=== PATIENT | male | born 1970 | race Caucasian/White ===

== ENCOUNTER 2016-10-06 06:34 | Inpatient (IN) | payer OTHER ==
[2016-10-05 13:52] VITALS: BP 134/96
[2016-10-05 14:17] LABS: ASPARTATE AMINO TRANSFERASE 33 U/L (15-37); BLOOD UREA NITROGEN 13 mg/dL (7-18)
[~2016-10-06] VITALS: Ht 180.3 cm; Wt 80.9 kg
[~2016-10-06 06:34] MED LIST: AMIO200T42 PO; FLEC100T PO; RIVA20TA PO
[2016-10-06] MEDS ORDERED: SODIUM CHLORIDE 0.9% 1,000 ML IV SCH (06:46)
[2016-10-06] MEDS ORDERED: LIDOCAINE 2%, 20ML ONE (07:40)
[2016-10-06] MEDS ORDERED: ADENOSINE 6 MG/2 ML ONE (07:40)
[2016-10-06] MEDS ORDERED: ISOPROTERENOL 0.2MG/ML, 5ML ONE (07:40)
[2016-10-06] MEDS ORDERED: PROTAMINE SULFATE 10 MG/ML, 5ML ONE (07:41)
[2016-10-06] MEDS ORDERED: FENTANYL PF 250 MCG/5ML ONE (07:53)
[2016-10-06] MEDS ORDERED: MIDAZOLAM 1 MG/ML, 5ML ONE (07:53)
[2016-10-06] MEDS ORDERED: PROPOFOL 10 MG/ML, 20ML ONE (07:55)
[2016-10-06] MEDS ORDERED: ROCURONIUM 10 MG/ML ONE (07:55)
[2016-10-06] MEDS ORDERED: ONDANSETRON 2MG/ML, 2ML ONE (07:55)
[2016-10-06] MEDS ORDERED: DEXAMETHASONE 4 MG/ML, 5ML ONE (07:55)
[2016-10-06] MEDS ORDERED: SUCCINYLCHOLINE 20 MG/ML, 10ML ONE (07:55)
[2016-10-06] MEDS ORDERED: HEPARIN 1,000 UNITS/ML, 10ML ONE (08:43)
[2016-10-06] MEDS ORDERED: ZOLPIDEM 5MG TABLET PO PRN (10:00)
[2016-10-06] MEDS ORDERED: OXYcodone 5 MG/5 ML ORAL.SOL UDC PO PRN (10:30)
[2016-10-06] MEDS ORDERED: ONDANSETRON 2MG/ML, 2ML IVPush PRN (10:30)
[2016-10-06] MEDS ORDERED: FENTANYL PF 100 MCG/2ML IV PRN (10:30)
[2016-10-06] MEDS ORDERED: MEPERIDINE/PF 25MG/0.5ML IVPush PRN (10:30)
[2016-10-06] MEDS ORDERED: ALBUTEROL SULFATE 2.5 MG/3 ML NPPB PRN (10:30)
[2016-10-06] MEDS ORDERED: HYDROmorphone 1 MG/ML, 1ML IV PRN (10:30)
[2016-10-06] MEDS ORDERED: hydrALAzine 20 MG/ML, 1ML IV PRN (10:30)
[2016-10-06] MEDS ORDERED: ACETAMINOPHEN 325 MG TABLET PO PRN (10:30)
[2016-10-06] MEDS ORDERED: PROMETHAZINE 25 MG/ML, 1ML IV PRN (10:30)
[2016-10-06] MEDS ORDERED: LABETALOL 5MG/ML, 20ML IV PRN (10:30)
[2016-10-06] MEDS ORDERED: MIDAZOLAM 1 MG/ML, 2ML IV PRN (10:30)
[2016-10-06 13:05] VITALS: BP 133/63
[2016-10-06 20:36] VITALS: BP 136/80
[2016-10-06] MEDS: AMIODARONE 200 MG TABLET PO SCH (20:46)
[2016-10-06] MEDS ORDERED: RIVAROXABAN 20 MG TABLET PO SCH (21:00)
[2016-10-06] MEDS ORDERED: AMIODARONE 200 MG TABLET PO SCH (21:00)
[2016-10-07 01:30] VITALS: BP 134/73
[2016-10-07 05:52] VITALS: BP 156/92
[2016-10-07 07:14] VITALS: BP 133/88
[2016-10-07] MEDS: AMIODARONE 200 MG TABLET PO SCH (08:02)
[2016-10-07] MEDS ORDERED: AMIO200T42 PO (08:12)
[2016-10-07] MEDS ORDERED: AMIODARONE 200 MG TABLET PO SCH (09:00)
== END 2016-10-07 10:00 | disposition home or self-care (01) | DRG 274 ==
LOC: CACL 06:34 → EDSTATUS 08:00 → INTOOBSV 09:59 → ORIP 09:59 → OBSVTOIN 09:59 → 5SO 12:39 → UNDODISOB 10-07 10:00
PROVIDERS: ADMIT Internal Medicine Cardiovascular Disease; ATTEND Internal Medicine Cardiovascular Disease
PROC: 02K83ZZ Map Conduction Mechanism, Percutaneous Approach (ICD-10-PCS; 2016-10-06)
PROC: 4A023FZ Measurement of Cardiac Rhythm, Percutaneous Approach (ICD-10-PCS; 2016-10-06)
PROC: 4A0234Z Measurement of Cardiac Electrical Activity, Percutaneous Approach (ICD-10-PCS; 2016-10-06)
PROC: 02583ZZ Destruction of Conduction Mechanism, Percutaneous Approach (ICD-10-PCS; principal; 2016-10-06 08:00)
DX: I48.0 Paroxysmal atrial fibrillation (principal); I48.92 Unspecified atrial flutter
CPT/HCPCS: 36415; 71020; 80053; 85025; 85347; 85610; 85730; 93308; 93613; 93655; 93656; 93662; C1730; C1731; C1732; C1759; C1766; C1893; C1894; G0378; J0330; J1100; J1644; J2250; J2405; J2704; J3010; J3490; J0153; J2720